=== PATIENT | male | born 1980 | race Caucasian/White ===

== ENCOUNTER 2017-09-08 19:39 | Inpatient (IN) ==
[2017-09-08] MEDS ORDERED: IOPAMIDOL 100 ML BOTTLE IV ONE (19:40)
[2017-09-08] MEDS ORDERED: ASPIRIN 81 MG TAB.CHEW CHEWED ONE (19:53)
[2017-09-08] MEDS ORDERED: ONDANSETRON 4 MG/2 ML VIAL IV ONE (19:56)
[2017-09-08] MEDS ORDERED: 0.9 % SODIUM CHLORIDE 1,000 ML IV ONE ×3 (19:56→21:03)
[2017-09-08] MEDS ORDERED: ASPIRIN 81 MG TAB.CHEW ONE (20:00)
[2017-09-08] MEDS ORDERED: HYDROmorphone 2 MG/ML VIAL IV SCH (20:00)
--- NOTE | 2017-09-08 20:02 | Emergency Department Note ---
Nausea/Vomiting/Diarrhea HPI - General Chief complaint: Nausea/Vomiting/Diarrhea Stated complaint: abdominal pain, nausea Time Seen by Provider: 09/08/17 19:47 Source: patient Mode of arrival: ambulatory Limitations: no limitations - History of Present Illness HPI Narrative: 37-year-old male presents with epigastric pain and 2 episodes of vomiting. He states the pain is very significant and he has diaphoretic and pale. He states this started around 3:00 when he ate a hot dog from [employer]. He has 2 episodes of emesis at work and is now in significant pain. He has pain when walking. He has never had any cardiac history or GI history. He only takes lisinopril. He states he has shortness of breath because it hurts to take a deep breath then in the epigastric region. He denies any gallbladder issues. He denies any fever chills. He denies any diarrhea. He is not dizzy. He does not drink alcohol on a regular basis and does not do any recreational drugs. - Related Data Home Medications Medication Instructions Recorded Confirmed Lisinopril [Zestril] 30 mg PO 07/22/17 Allergies Allergy/AdvReac Type Severity Reaction Status Date / Time No Known Drug Allergies Allergy Verified 09/08/17 19:41 Review of Systems All systems ED: reviewed and negative except as stated. Past Medical History - Past Medical History Medical history: Reports: hypertension, obesity Psychiatric history: Reports: no psych history Surgical history ED: Reports: no surgical history Family history: Reports: non-contributory - Social History smoking status: Never smoker Physical Exam Limitations: no limitations General appearance: alert, in distress (pale and diphoretic) Neck: Present: normal inspection, full ROM Chest: Present: normal inspection, symmetric chest wall rise Respiratory: Present: normal lung sounds bilaterally Cardiovascular: Present: regular rate, normal heart sounds, other (episodes on bradycardia) Abdominal: Present: soft, distention, tenderness, guarding, rebound, normal bowel sounds. Absent: rigidity, heel tap sign Abdominal tenderness: Present: RUQ, LUQ, epigastrium, severe Extremities: Present: normal inspection, full ROM Neurological: Present: alert, oriented X3 Psychiatric: Present: anxious Skin: Present: warm, dry, diaphoresis, pallor Course Course Narrative: Pressors started due to low BP Dr. Cohen has seen the patient and will admit. Dr. Rajan will take over from here. He has been involved in this case from the beginning - Reevaluation(s) Reevaluation #1: Pain has decreased a lot. He is going to CT Time: 21:00 Vital Signs Temperature 97.5 F 09/08/17 19:39 Pulse Rate 75 09/08/17 19:39 Respiratory Rate 20 09/08/17 19:39 Blood Pressure 159/89 09/08/17 19:39 Pulse Oximetry (%) 97 09/08/17 19:39 Temperature 97.5 F 09/08/17 19:39 Pulse Rate 75 09/08/17 19:39 Respiratory Rate 20 09/08/17 19:39 Blood Pressure 159/89 09/08/17 19:39 Pulse Oximetry (%) 97 09/08/17 19:39 Nausea/Vomiting/Diarrhea - Lab Data Result diagrams: 09/08/17 20:05 09/08/17 20:05 Lab Results 09/08/17 09/08/17 09/08/17 Range/Units 20:05 20:05 20:05 WBC 14.5 H (4.5-11.0) K/mcL RBC 4.73 (4.50-5.90) M/mcL Hgb 13.5 (13.5-16.5) g/dL Hct 39.8 L (41.0-55.0) % POC Hct Cancelled MCV 84.2 (80.0-100.0) fL MCH 28.7 (26.0-34.0) pg MCHC 34.0 (31.0-36.0) g/dL RDW 13.4 (11.5-14.5) % Plt Count 239 (140-440) K/mcL MPV 9.0 (7.4-10.4) fL Total Counted 100 Seg Neutrophils % 82 H (38-78) % Band Neutrophils % 1 (0-10) % Lymphocytes % 10 L (15-49) % Monocytes % (Manual) 4 (1-12) % Eosinophils % (Manual) 3 (0-7) % Platelet Estimate Normal (NORMAL) RBC Morphology Normal (NORMAL) PT (11.9-14.5) sec INR (0.9-1.1) APTT (20-37) sec POC Sodium Cancelled POC Potassium Cancelled POC Chloride Cancelled POC Total CO2 Cancelled POC BUN Cancelled POC Creatinine Cancelled POC Glucose Cancelled POC WB Ioniz Calcium Cancelled Troponin T < 0.01 (0-0.03) ng/ml POC Anion Gap Cancelled 09/08/17 09/08/17 09/08/17 Range/Units 20:05 20:05 20:25 WBC (4.5-11.0) K/mcL RBC (4.50-5.90) M/mcL Hgb (13.5-16.5) g/dL Hct (41.0-55.0) % POC Hct 38.0 L MCV (80.0-100.0) fL MCH (26.0-34.0) pg MCHC (31.0-36.0) g/dL RDW (11.5-14.5) % Plt Count (140-440) K/mcL MPV (7.4-10.4) fL Total Counted Seg Neutrophils % (38-78) % Band Neutrophils % (0-10) % Lymphocytes % (15-49) % Monocytes % (Manual) (1-12) % Eosinophils % (Manual) (0-7) % Platelet Estimate (NORMAL) RBC Morphology (NORMAL) PT 13.2 (11.9-14.5) sec INR 1.0 (0.9-1.1) APTT 28 (20-37) sec POC Sodium 142 POC Potassium 3.8 POC Chloride 103 POC Total CO2 25 POC BUN 19 POC Creatinine 1.1 POC Glucose 150 H POC WB Ioniz Calcium 1.17 Troponin T (0-0.03) ng/ml POC Anion Gap - EKG Data EKG attestation: Yes I reviewed and interpreted this EKG. EKG results narrative: No signs of ischemia Disposition Pt seen by [facility] ASSOCIATE/PA only: No Clinical Impression: Abdominal pain Disposition: Xfer As Inpt ([facility]) Condition: Fair Referrals: Angela Freeman ARNP [Primary Care Provider] -
[2017-09-08] MEDS ORDERED: NOREPINEPHRINE BITARTRATE 8 MG in 0.9 % SODIUM CHLORIDE 242 ML IV ONE (20:27)
[2017-09-08 20:54] LABS: Mean Cell Volume 84.2 fL (80.0-100.0); Mean Corpuscular Hemoglobin 28.7 pg (26.0-34.0); Platelet Count 239 K/mcL (140-440); RBC 4.73 M/mcL (4.50-5.90); Red Cell Distribution Width 13.4 % (11.5-14.5)
[2017-09-08 21:23] LABS: Band Neutrophils % 1 % (0-10); Eosinophils % (Manual) 3 % (0-7); Lymphocytes % 10 % (15-49); Monocytes % (Manual) 4 % (1-12); Platelet Estimate NORMAL (NORMAL); RBC Morphology NORMAL (NORMAL); Segmented Neutrophils % 82 % (38-78)
--- NOTE | 2017-09-08 21:59 | General Surg History&Physical ---
History of Present Illness Patient information: Note initiated : 09/08/17 at 9:57 pm Service Date, if different from initiated Date: [] Patient: Belle Argueta a 37 y/o M admitted on for abdominal pain, nausea. Chief Complaint: [] HPI: Mr. Argueta is a 37 year old M who is evaluated in the emergency room and admitted with suspected deep Antonina-Kim tear with upper GI bleeding, hypotension, sinus bradycardia. The patient states that he was eating some hot dogs and sausages when one got stuck. He states that he eats very fast and does not adequately chew his food. He retched multiple times after which he had large amount of emesis of blood which she states would feel up a large cup about 16 ounces or more. He had emesis of blood 3 times and became very weak. He was transported to the emergency room where he was pale diaphoretic with blood pressure in the low 80s and pulse in the 40s. He was given 3 L of saline and eventually started on low-dose Levophed when his blood pressure did not increase. His POC hematocrit was 38 and repeat was 43. He is suspected of having a major Antonina-Kim tear but also must consider a small BOERHAAVE RUPTURE even though his CT is confirmatory. His initial white blood count is 14 ,000. He is admitted and will be started on pantoprazole. He will be kept n.p.o. except for ice chips and I will order a Gastrografin esophagogram in the morning. Past History Past medical history: HYPERTENSION Past surgical history: NONE Past social history: NO TOBACCO OCCASIONAL ALCOHOL USE DENIES DRUG USE Medications and Allergies Home Medications Medication Instructions Recorded Confirmed Type Lisinopril [Zestril] 30 mg PO DAILY 07/22/17 09/08/17 History Allergies Allergy/AdvReac Type Severity Reaction Status Date / Time No Known Drug Allergies Allergy Verified 09/08/17 19:41 Exam Temp Pulse Resp BP Pulse Ox 97.5 F 75 20 159/89 97 09/08/17 19:39 09/08/17 19:39 09/08/17 19:39 09/08/17 19:39 09/08/17 19:39 - General physical appearance well developed, well nourished, moderate distress, obese - Eyes PERRL, normal ocular movement - ENT normal pinna, normal nares, normal mucosa, no hearing loss, no congestion - Head Head exam IM: Present: atraumatic, normocephalic - Neck no masses, no bruits, trachea midline, no lymphadectomy, no venous distension - Cardiovascular Cardiovascular exam IM: Present: normal rate and rhythm - Respiratory normal expansion, normal respiratory effort, clear to percussion, clear to auscultation - Abdomen Abdomen: Present: soft, non tender, tender (MILD EPIGASTRIC TENDERNESS), bowel sounds Hernia: Present: none - Genitourinary Present: normal penis with no external lesions - Integumentary Present: no rash, no growths, no abnormal pigmentation - Neurologic Present: normal coordination, normal sensation - Musculoskeletal Present: normal gait, normal posture - Psychiatric Present: oriented to time, oriented to person, oriented to place, speech is normal, memory intact Assessment and Plan (1) Acute upper gastrointestinal bleeding SERIAL HGB AND HCT PANTOPRAZOLE 40 MG IV Q12 HR START CARAFATE SUSPENSION IN A.M. TRANSFUSE NEEDED Status: Acute (2) Antonina-Kim tear Status: Acute (3) Hypertension HOLD MEDICATION UNTIL BP STABILIZES Status: Acute
[2017-09-08] MEDS ORDERED: METOCLOPRAMIDE 10 MG/2 ML VIAL IV ONE (22:24)
[2017-09-08] MEDS ORDERED: PANTOPRAZOLE 40 MG VIAL IV ONE (22:24)
[2017-09-08] MEDS ORDERED: 0.9 % SODIUM CHLORIDE 250 ML IV SCH ×2 (22:30→23:05)
[2017-09-08] MEDS ORDERED: HYDROmorphone 2 MG/ML VIAL IV PRN (23:05)
[2017-09-08] MEDS ORDERED: ACETAMINOPHEN 1,000 MG/100 ML BOTTLE IV PRN (23:05)
[2017-09-08] MEDS ORDERED: ONDANSETRON 4 MG/2 ML VIAL IV PRN ×2 (23:05)
[2017-09-08] MEDS: 0.9 % SODIUM CHLORIDE 1,000 ML IV SCH (23:28)
[2017-09-08] MEDS: 0.9 % SODIUM CHLORIDE 10 ML SYRINGE IV SCH (23:28)
[2017-09-08] MEDS ORDERED: HYDROmorphone 2 MG/ML VIAL ONE (23:35)
[2017-09-09] MEDS: METOCLOPRAMIDE 10 MG/2 ML VIAL IV SCH ×2 (00:32→05:38)
[2017-09-09] MEDS: 0.9 % SODIUM CHLORIDE 1,000 ML IV SCH ×2 (02:33→05:38)
[2017-09-09] MEDS ORDERED: HYDROmorphone 2 MG/ML VIAL ONE (02:45)
[2017-09-09] MEDS: 0.9 % SODIUM CHLORIDE 10 ML SYRINGE IV SCH (05:38)
[2017-09-09 05:42] LABS: Mean Cell Volume 85.3 fL (80.0-100.0); Mean Corpuscular Hemoglobin 28.2 pg (26.0-34.0); Platelet Count 224 K/mcL (140-440); RBC 4.93 M/mcL (4.50-5.90); Red Cell Distribution Width 13.8 % (11.5-14.5)
[2017-09-09] MEDS ORDERED: METOCLOPRAMIDE 10 MG/2 ML VIAL ONE (05:44)
[2017-09-09 06:02] LABS: ALT/SGPT 17 U/l (0-40); Albumin 3.5 gm/dL (3.2-5.2); Albumin/Globulin Ratio 1.1 (1.0-2.3); Alkaline Phosphatase 82 U/L (39-117); Bilirubin,Direct < 0.2 mg/dL (0.0-0.3); Blood Urea Nitrogen 15 mg/dl (6-20); Gamma Glutamyl Transpeptidase 30 U/L (8-61); Uric Acid 6.7 mg/dL (2.5-8.0)
[2017-09-09 06:38] LABS: Band Neutrophils % 7 % (0-10); Lymphocytes % 12 % (15-49); Monocytes % (Manual) 4 % (1-12); Platelet Estimate NORMAL (NORMAL); RBC Morphology NORMAL (NORMAL); Segmented Neutrophils % 77 % (38-78)
[2017-09-09] MEDS ORDERED: PANTOPRAZOLE 40 MG VIAL IV SCH (07:30)
--- NOTE | 2017-09-09 08:56 | Cat Scan Report ---
History: Vomiting blood after forceful emesis related to food becoming obstructed in the esophagus Findings: The patient was imaged following intravenous but no oral contrast from the thoracic inlet to the symphysis pubis. Sagittal and coronal reformats were created along with MIPS images of the chest. Chest There is a 2 mm calcified granuloma in the inferior segment lingula. The right middle lobe there is a 1.5 mm granuloma. There is a thin bands of scar or discoid atelectasis in the posterior basal segment left lower lobe. The lungs are otherwise clear and well expanded. There is no evidence of aspiration or foreign body. The trachea and bronchi are normal with no intraluminal filling defects or bronchial wall thickening. The esophagus is collapsed. The sanchez do not appear to be thickened or inflamed. There is no free air or fluid in the posterior mediastinum near the esophagus. No hiatus hernia is present. No foreign bodies seen within the esophagus. The heart is normal in size and contour. No adenopathy is present. There is bilateral gynecomastia. Abdomen: The liver and spleen are normal in size and homogeneous. The gallbladder pancreas, adrenals and kidneys are normal. A moderate amount of fluid in the stomach. The stomach is normally distended. There is no evidence of perforated bowel. No free air or free fluid are present within the abdomen or pelvis. The appendix is noninflamed. Urinary bladder is unopacified but appears normal. There is a small fat-containing umbilical hernia. Arthritis is seen at multiple levels in the thoracic and lumbar spine. Impression: No evidence of esophageal or bowel obstruction. No evidence of esophageal tear. Old granulomatous disease in the lungs Dr. Cohen was called with results Interpreted and Authenticated by: Venkat Toro 09/09/17
[2017-09-09] MEDS ORDERED: PIPERACILLIN SODIUM/TAZOBACTAM 3.375 GM in DEXTROSE 5% IN WATER 50 ML IV SCH (09:00)
--- NOTE | 2017-09-09 09:37 | XRay Report ---
HISTORY: Reason for Exam: Vomiting blood after violent vomiting, related to esophageal obstruction FINDINGS: Gastrografin esophagram was performed with the patient upright. There is normal pharyngeal and esophageal motility. The contrast flowed into the stomach without obstruction. There is no evidence of esophageal tear, intraluminal mass, stricture or hiatus hernia. There is no extravasation of contrast outside of the lumen of the esophagus or stomach. IMPRESSION: Normal esophagram Interpreted and Authenticated by: Venkat Toro 09/09/17
--- NOTE | 2017-09-09 10:23 | General Surgery Progress Note ---
Subjective Patient reports: feels better, pain is less, fever Narrative: Note initiated : 09/09/17 at 10:19 am Service Date, if different from initiated Date: [] Patient: Belle Argueta 37 y/o M admitted on 09/08/17 for abdominal pain, nausea. Chief Complaint: [Patient states that he feels better and desires to leave. He still has epigastric pain. His temperature was 99 as of 4 AM. He denies nausea and he has not had any vomiting since admission. His white count has increased to 16,000. He does not have any back pain this morning. He was advised that I need to get a Gastrografin swallow completed to get a better look at his esophagus and GE junction. I also asked Dr. Toro to reevaluate his chest and abdominal CT. Dr. Toro states that the esophagus looks normal and the retroperitoneum and mediastinum of the distal esophagus does not show any fluid, inflammation, air. A Gastrografin swallow was done and was interpreted as normal without evidence of ulceration or leak. After the procedure was completed the patient properly asked that his diabetes be discontinued and he left the hospital AGAINST MEDICAL ADVICE. He did not wait for antibiotics and stated that he would return if he got worse. I spent about 15 minutes explaining the need for him to be on medication and the need for him to be observed for at least another 24 hours but he refused.] Objective Temp Pulse Resp BP Pulse Ox 97.3 F 72 15 130/72 99 09/09/17 06:45 09/09/17 09:01 09/09/17 09:14 09/09/17 09:01 09/09/17 09:01 - Additional Data Intake & Output - Last 24 hours: Intake & Output 09/07/17 09/08/17 09/09/17 09/10/17 05:59 05:59 05:59 05:59 Intake Total 2639 / 2639 1899 / 1899 Output Total 1700 / 1700 Balance 263 / 2639 199 / 199 Weight 373 lb 8 oz - General physical appearance no distress, other (Mild epigastric pain) - Neck no masses, other (No crepitus) - Respiratory normal expansion, normal respiratory effort, clear to percussion, clear to auscultation - Cardiovascular Cardiovascular exam: Present: normal rate and rhythm, RRR, +S1, +S2. Absent: JVD - Abdomen tender (Mild epigastric tenderness), bowel sounds (present), surgical scars ( none), masses (none) - Integumentary no rash, no growths, no abnormal pigmentation - Neurologic normal coordination, normal sensation - Musculoskeletal normal gait, normal posture - Psychiatric oriented to time, oriented to person, oriented to place, speech is normal, memory intact - Labs 09/09/17 03:44 09/09/17 03:44 Diabetes panel 09/09/17 Range/Units 03:44 Sodium 139 (133-145) mmol/L Potassium 4.3 (3.3-5.1) mmol/L Chloride 103 (96-108) mmol/L Carbon Dioxide 23 (22-30) mmol/L BUN 15 (6-20) mg/dl Creatinine 0.9 (0.7-1.2) mg/dl Glucose 104 (70-105) mg/dL Calcium 8.6 (8.6-10.4) mg/dl AST 15 (0-37) U/l ALT 17 (0-40) U/l Alkaline Phosphatase 82 (39-117) U/L Total Protein 6.8 (5.9-8.4) gm/dL Albumin 3.5 (3.2-5.2) gm/dL Triglycerides 91 (<150) mg/dl Calcium panel 09/09/17 Range/Units 03:44 Calcium 8.6 (8.6-10.4) mg/dl Phosphorus 3.6 (2.7-4.5) mg/dL Albumin 3.5 (3.2-5.2) gm/dL Pituitary panel 09/09/17 Range/Units 03:44 Sodium 139 (133-145) mmol/L Potassium 4.3 (3.3-5.1) mmol/L Chloride 103 (96-108) mmol/L Carbon Dioxide 23 (22-30) mmol/L BUN 15 (6-20) mg/dl Creatinine 0.9 (0.7-1.2) mg/dl Glucose 104 (70-105) mg/dL Calcium 8.6 (8.6-10.4) mg/dl Adrenal panel 09/09/17 Range/Units 03:44 Sodium 139 (133-145) mmol/L Potassium 4.3 (3.3-5.1) mmol/L Chloride 103 (96-108) mmol/L Carbon Dioxide 23 (22-30) mmol/L BUN 15 (6-20) mg/dl Creatinine 0.9 (0.7-1.2) mg/dl Glucose 104 (70-105) mg/dL Calcium 8.6 (8.6-10.4) mg/dl Total Bilirubin 0.2 (0.0-1.0) mg/dL AST 15 (0-37) U/l ALT 17 (0-40) U/l Alkaline Phosphatase 82 (39-117) U/L Total Protein 6.8 (5.9-8.4) gm/dL Albumin 3.5 (3.2-5.2) gm/dL Assessment and Plan (1) Acute upper gastrointestinal bleeding Status: Acute Assessment and plan: Hemoglobin and hematocrit are stable (2) Antonina-Kim tear Status: Acute Assessment and plan: Patient has low-grade fever with white count increased to 16.7. He was strongly advised to continue to be hospitalized but he was very adamant that he was going to leave. He did stay for the barium swallow but left shortly thereafter. He did not wait for antibiotics. (3) Hypertension Status: Acute - Time Spent With Patient Total time spent is greater than 50% in coordination of care (as documented) at patient's floor/unit and/or counseling patient:
== END 2017-09-09 09:30 | disposition left against medical advice (07) | DRG 378 ==
LOC: ED 19:39 → ICU 22:54
PROVIDERS: ADMIT Family Medicine Adult Medicine; ATTEND Family Medicine Adult Medicine